=== PATIENT | female | born 1945 | race Caucasian/White ===

== ENCOUNTER 2018-10-05 16:16 | Inpatient (IN) | payer MEDICARE, OTHER ==
[~2018-10-05] VITALS: Ht 160 cm; Wt 84.7 kg
[2018-10-05] MEDS ORDERED: ipratropium/albuterol 3ml nebule NEB ONE (16:25)
[2018-10-05] MEDS ORDERED: LORazepam 2 mg/ml vial IV ONE (16:25)
[2018-10-05] MEDS ORDERED: ondansetron/PF 4mg/2ml inj IV ONE (16:35)
[2018-10-05] MEDS ORDERED: morphine 4 MG/ML inj SYRINge IV PRN (16:35)
--- NOTE | 2018-10-05 16:41 | NUR ---
PT STATES SHE SEES DRA SALCEDO, CALLED [phone], MACHINE ZIPPER TRIMMER WILL FAX MEDICATION LIST AND LIST OF PT ALLERGIES.
[2018-10-05 16:59] LABS: BASOPHILS % (AUTO) 0.5 % (0-1); EOSINOPHILS # (AUTO) 0.3 X10'3 (0-0.9); EOSINOPHILS % (AUTO) 4.2 % (0-6); HEMATOCRIT 45.5 % (35.0-45.0); HEMOGLOBIN 14.9 g/dl (12.0-16.0); LYMPHOCYTES # (AUTO) 2.1 X10'3 (1.1-4.8); LYMPHOCYTES % (AUTO) 28.9 % (21-51); MEAN CORPUSCULAR HEMOGLOBIN 29.3 PG (27.0-31.0); MEAN CORPUSCULAR HGB CONC 32.8 % (33.0-36.5); MEAN CORPUSCULAR VOLUME 89.3 FL (78-98); MEAN PLATELET VOLUME 11.3 FL (7.4-10.4); MONOCYTES # (AUTO) 0.9 X10'3 (0-0.9); MONOCYTES % (AUTO) 12.2 % (2-12); NEUTROPHILS % (AUTO) 54.2 % (42-75); PLATELET COUNT 151 X10'3 (140-440); RED BLOOD COUNT 5.09 X10'6 (4.20-5.60); RED CELL DISTRIBUTION WIDTH 13.1 % (11.5-14.5); WHITE BLOOD COUNT 7.3 X10'3 (4.5-11.0)
[2018-10-05 17:21] LABS: INR 1.1 INR; PROTHROMBIN TIME 11.2 SECONDS (9.0-12.0)
[2018-10-05 17:23] LABS: ALANINE AMINOTRANSFERASE 46 U/L (12-78); ALBUMIN 3.7 G/DL (3.4-5.0); ALBUMIN/GLOBULIN RATIO 0.9 (1.1-1.5); ALKALINE PHOSPHATASE 76 IU/L (46-116); ANION GAP 16 (8-16); ASPARTATE AMINO TRANSFERASE 55 U/L (10-37); BILIRUBIN,TOTAL 0.9 MG/DL (0.1-1.0); BLOOD UREA NITROGEN 10 MG/DL (7-18); BUN/CREATININE RATIO 12.5 (6.6-38.0); CALCIUM 9.3 MG/DL (8.5-10.1); CHLORIDE 101 MMOL/L (99-107); ETHANOL < 0.010 GM/DL (0.0-0.010); GLUCOSE 118 MG/DL (70-104); SODIUM 143 MMOL/L (135-145); TOTAL CARBON DIOXIDE 26.4 MMOL/L (24-32); eGFR 68 ML/MIN
[2018-10-05 17:25] LABS: POTASSIUM 1.8 MMOL/L (3.5-5.1)
[2018-10-05] MEDS ORDERED: potassium Cl oral solution 20 MEQ/15 ML PO ONE (17:25)
[2018-10-05] MEDS ORDERED: potassium Cl 20 mEq/100mL bag IV ONE (17:25)
[2018-10-05] MEDS ORDERED: nitroGLYCERIN 0.4mg SUBLingual tab SL PRN (17:30)
[2018-10-05] MEDS ORDERED: enoxaparin 100mg/ml syringe SUBCUT ONE (17:30)
[2018-10-05] MEDS ORDERED: potassium 10mEq/100ml NS w/LIDOcaine (10mg/bag) IV SCH (17:35)
[2018-10-05] MEDS: potassium 10mEq/100ml NS w/LIDOcaine (10mg/bag) IV SCH ×2 (17:40→19:27)
[2018-10-05 17:51] LABS: MAGNESIUM 1.9 MG/DL (1.5-2.4)
[2018-10-05] MEDS ORDERED: magnesium hydroxide 30ml (MOM) UD suspension PO PRN (17:55)
[2018-10-05] MEDS ORDERED: ondansetron/PF 4mg/2ml inj IV PRN (17:55)
[2018-10-05] MEDS ORDERED: acetaminophen 325mg tablet PO PRN (17:55)
[2018-10-05] MEDS ORDERED: FURO-150 PO (17:55)
[2018-10-05] MEDS ORDERED: potassium Cl 20 mEq SR tablet PO PRN (17:55)
[2018-10-05] MEDS ORDERED: TRAZ-218 PO (17:55)
[2018-10-05] MEDS ORDERED: magnesium 4gm in 100ml NS 100 ML IV PRN (17:55)
[2018-10-05] MEDS ORDERED: potassium Cl 40MEQ/NS 500ml 500 ML IV PRN ×2 (17:55)
[2018-10-05] MEDS ORDERED: magnesium Cl slow-release 64mg tablet PO PRN (17:55)
[2018-10-05] MEDS ORDERED: NIFE30TA88 PO (17:55)
[2018-10-05] MEDS ORDERED: mag hydrox/Alum hydrox/simeth 30ml oral suspension PO PRN (17:55)
[2018-10-05] MEDS ORDERED: BISO1TAB4 PO (17:56)
--- NOTE | 2018-10-05 17:59 | NUR ---
RT AT BEDSIDE FOR BREATHING TREATMENT PER ORDERS NOW.
--- NOTE | 2018-10-05 18:16 | NUR ---
PT FAMILY MEMBER RANJITH CALLED HER PHONE# [phone]
[2018-10-05 18:45] VITALS: BP 149/60
[2018-10-05] MEDS: enoxaparin 80mg/0.8ml syringe SUBCUT SCH (19:06)
[2018-10-05] MEDS ORDERED: enoxaparin 100mg/ml syringe SUBCUT SCH (20:00)
[2018-10-05 20:22] LABS: POTASSIUM 2.5 MMOL/L (3.5-5.1)
[2018-10-05] MEDS: potassium Cl 20mEq in NS 1,000 ML IV SCH (21:39)
[2018-10-05] MEDS: traZODone 50mg tablet PO SCH (21:42)
[2018-10-05 22:00] VITALS: BP 126/64
[2018-10-05 23:10] LABS: POTASSIUM 2.8 MMOL/L (3.5-5.1)
[2018-10-06] VITALS (20 sets, daily range): BP systolic 97–140; BP diastolic 39–70
[2018-10-06] MEDS: potassium Cl 20 mEq SR tablet PO PRN ×3 (01:08→10:59)
[2018-10-06] MEDS: potassium Cl 20mEq in NS 1,000 ML IV SCH ×3 (03:55→20:20)
[2018-10-06 05:02] LABS: BASOPHILS % (AUTO) 0.5 % (0-1); EOSINOPHILS # (AUTO) 0.2 X10'3 (0-0.9); EOSINOPHILS % (AUTO) 4.4 % (0-6); HEMATOCRIT 36.5 % (35.0-45.0); HEMOGLOBIN 12.3 g/dl (12.0-16.0); LYMPHOCYTES # (AUTO) 1.1 X10'3 (1.1-4.8); MEAN CORPUSCULAR HEMOGLOBIN 30.3 PG (27.0-31.0); MEAN CORPUSCULAR HGB CONC 33.7 % (33.0-36.5); MEAN CORPUSCULAR VOLUME 89.9 FL (78-98); MEAN PLATELET VOLUME 11.3 FL (7.4-10.4); MONOCYTES # (AUTO) 0.5 X10'3 (0-0.9); MONOCYTES % (AUTO) 10.8 % (2-12); NEUTROPHILS % (AUTO) 61.3 % (42-75); PLATELET COUNT 110 X10'3 (140-440); RED BLOOD COUNT 4.06 X10'6 (4.20-5.60); RED CELL DISTRIBUTION WIDTH 13.4 % (11.5-14.5); WHITE BLOOD COUNT 4.8 X10'3 (4.5-11.0)
[2018-10-06 05:56] LABS: ALBUMIN 2.8 G/DL (3.4-5.0); ANION GAP 9 (8-16); BLOOD UREA NITROGEN 9 MG/DL (7-18); BUN/CREATININE RATIO 12.9 (6.6-38.0); CALCIUM 8.3 MG/DL (8.5-10.1); CHLORIDE 106 MMOL/L (99-107); GLUCOSE 111 MG/DL (70-104); POTASSIUM 3.2 MMOL/L (3.5-5.1); SODIUM 143 MMOL/L (135-145); TOTAL CARBON DIOXIDE 28.5 MMOL/L (24-32); eGFR 82 ML/MIN
--- NOTE | 2018-10-06 06:00 | NUR ---
Patient in room MED 316. I have received report from FLORENCE Cortez and had the opportunity to ask questions and assume patient care.
--- NOTE | 2018-10-06 06:00 | NUR ---
Patient in room MED 316. I have received report from FLORENCE Cortez and had the opportunity to ask questions and assume patient care.
--- NOTE | 2018-10-06 06:17 | NUR ---
Problems reprioritized. Patient report given, questions answered & plan of care reviewed with Yvan HENRIQUEZ.
--- NOTE | 2018-10-06 06:30 | NUR ---
Patient in room MED 316. I have received report from FLORENCE Zapata and had the opportunity to ask questions and assume patient care.
[2018-10-06 06:48] LABS: CLARITY,URINE CLEAR (Clear); COLOR,URINE YELLOW (Yellow); GLUCOSE, URINE NEGATIVE (Neg); KETONES,URINE NEGATIVE (Neg); LEUKOCYTE ESTERASE ,URINE NEGATIVE (Neg); NITRITES, URINE NEGATIVE (Neg); OCCULT BLOOD,URINE NEGATIVE (Neg); PH,URINE 6.5 (4.8-8.0); PROTEIN,URINE NEGATIVE (Neg); UA COLLECTION TYPE NON-SPECIFIED
[2018-10-06 06:57] LABS: URINE AMPHETAMINE SCREEN NEGATIVE (Neg); URINE BARBITUATE SCREEN NEGATIVE (Neg); URINE BENZODIAZEPINES SCREEN NEGATIVE (Neg); URINE CANNABINOID SCREEN NEGATIVE (Neg); URINE COCAINE SCREEN NEGATIVE (Neg); URINE METHADONE SCREEN NEGATIVE (Neg); URINE OPIATE SCREEN POSITIVE (Neg); URINE PHENCYCLIDINE SCREEN NEGATIVE (Neg)
[2018-10-06] MEDS: aspirin 81mg tablet.DR PO SCH (07:58)
[2018-10-06] MEDS: atorvastatin 20mg tablet PO SCH (07:59)
[2018-10-06] MEDS: atenolol 50mg tablet PO SCH (08:00)
[2018-10-06] MEDS ORDERED: HCTZ PO SCH (08:00)
[2018-10-06] MEDS ORDERED: BISOPROLOL FUMARATE PO SCH (08:00)
[2018-10-06] MEDS ORDERED: HYDROchlorothiazide 25mg tablet PO SCH ×2 (08:00)
[2018-10-06] MEDS: NIFEdipine XL 30mg tablet PO SCH (08:01)
[2018-10-06] MEDS: enoxaparin 80mg/0.8ml syringe SUBCUT SCH ×2 (08:02→20:08)
[2018-10-06 08:51] LABS: CHOL/HDL RATIO 3.9 (0.00-4.99); CHOLESTEROL 154 MG/DL (0-200); HDL CHOLESTEROL 39 MG/DL (35-60); LDL CHOLESTEROL 111 MG/DL (50-100); TRIGLYCERIDES 84 MG/DL (20-135)
[2018-10-06] MEDS ORDERED: BUSP10TA11 PO (09:12)
[2018-10-06] MEDS ORDERED: MELO-100 PO (09:12)
--- NOTE | 2018-10-06 11:26 | NUR ---
Patient reports that approximately 4 weeks ago she received dental work to remove her a molar which caused her to have to take Ibuprofen. She reports that she had to take the Ibuprofen for 2 weeks. During this time period she states that she was not able to take her Potassium for that 2 week period because the "pills are too large" for her to swallow and she only could tolerate taking the Ibuprofen for the pain. She reports that she is supposed to take Potassium 20 mEq daily with her other medications. She reports that she just remembered this and forgot that she also takes the Potassium.
[2018-10-06] MEDS ORDERED: POTA20TA19 PO (11:36)
[2018-10-06] MEDS ORDERED: metoprolol tartrate 1mg/ml inj IV PRN (11:50)
[2018-10-06] MEDS ORDERED: regadenoson 0.4mg/5ml syringe IV PRN (11:50)
[2018-10-06] MEDS ORDERED: aminophylline 250mg/10ml inj. IV PRN (11:50)
[2018-10-06] MEDS ORDERED: nitroGLYCERIN 0.4mg SUBLingual tab SL PRN (11:50)
--- NOTE | 2018-10-06 14:45 | NUR ---
Patient left the floor with nuclear equipment design engineer. Patient left in stable condition by wheelchair.
[2018-10-06] MEDS ORDERED: regadenoson 0.4mg/5ml syringe IV ONE (15:08)
[2018-10-06] MEDS ORDERED: aminophylline inj. 10 ML IV ONE (15:08)
--- NOTE | 2018-10-06 17:40 | NUR ---
Orienteer documentation: I have reviewed and agree with all interventions, assessments performed and documented by Jodi HENRIQUEZ.
--- NOTE | 2018-10-06 18:20 | NUR ---
Patient in room MED 316. I have received report from FLORENCE Zapata and had the opportunity to ask questions and assume patient care.
[2018-10-06] MEDS: traZODone 50mg tablet PO SCH (20:07)
[2018-10-07 03:00] VITALS: BP 111/58
[2018-10-07 05:57] LABS: BASOPHILS % (AUTO) 0.7 % (0-1); EOSINOPHILS # (AUTO) 0.3 X10'3 (0-0.9); EOSINOPHILS % (AUTO) 8.4 % (0-6); HEMOGLOBIN 11.9 g/dl (12.0-16.0); LYMPHOCYTES # (AUTO) 1.1 X10'3 (1.1-4.8); LYMPHOCYTES % (AUTO) 35.1 % (21-51); MEAN CORPUSCULAR HEMOGLOBIN 30.7 PG (27.0-31.0); MEAN CORPUSCULAR HGB CONC 34.2 % (33.0-36.5); MEAN CORPUSCULAR VOLUME 89.7 FL (78-98); MEAN PLATELET VOLUME 11.4 FL (7.4-10.4); MONOCYTES # (AUTO) 0.4 X10'3 (0-0.9); MONOCYTES % (AUTO) 12.6 % (2-12); NEUTROPHILS # (AUTO) 1.4 X10'3 (1.8-7.7); NEUTROPHILS % (AUTO) 43.2 % (42-75); PLATELET COUNT 100 X10'3 (140-440); RED CELL DISTRIBUTION WIDTH 14.7 % (11.5-14.5); WHITE BLOOD COUNT 3.2 X10'3 (4.5-11.0)
[2018-10-07 06:00] VITALS: BP 105/54
[2018-10-07 06:04] LABS: ALBUMIN 2.6 G/DL (3.4-5.0); ANION GAP 5 (8-16); BLOOD UREA NITROGEN 9 MG/DL (7-18); BUN/CREATININE RATIO 12.9 (6.6-38.0); CALCIUM 8.2 MG/DL (8.5-10.1); CHLORIDE 113 MMOL/L (99-107); GLUCOSE 94 MG/DL (70-104); MAGNESIUM 1.9 MG/DL (1.5-2.4); POTASSIUM 4.1 MMOL/L (3.5-5.1); SODIUM 144 MMOL/L (135-145); TOTAL CARBON DIOXIDE 25.7 MMOL/L (24-32); eGFR 82 ML/MIN
--- NOTE | 2018-10-07 06:27 | NUR ---
Problems reprioritized. Patient report given, questions answered & plan of care reviewed with FLORENCE Yusuf.
--- NOTE | 2018-10-07 06:30 | NUR ---
Patient in room MED 316. I have received report from Feliciano HENRIQUEZ and had the opportunity to ask questions and assume patient care.
[2018-10-07] MEDS: atorvastatin 20mg tablet PO SCH (09:09)
[2018-10-07] MEDS: NIFEdipine XL 30mg tablet PO SCH (09:09)
[2018-10-07] MEDS: aspirin 81mg tablet.DR PO SCH (09:09)
[2018-10-07] MEDS: atenolol 50mg tablet PO SCH (09:10)
[2018-10-07] MEDS: potassium Cl 20mEq in NS 1,000 ML IV SCH (09:11)
[2018-10-07] MEDS ORDERED: iohexol 350MG/ML 100ml bottle IV ONE (09:41)
[2018-10-07 11:00] VITALS: BP 147/70
[2018-10-07] MEDS ORDERED: BISO5TAB PO (12:52)
[2018-10-07] MEDS ORDERED: ASPI-1071 PO (12:52)
[2018-10-07] MEDS ORDERED: ATOR20TA66 PO (12:52)
[2018-10-07] MEDS ORDERED: LISI-604 PO (12:53)
--- NOTE | 2018-10-07 14:30 | NUR ---
Patient was discharged in stable condition by dr Christina. All discharge paperwork and instructions were reviewed with the patient and her family, they had no further questions at this time. Her IV was removed with the catheter tip intact, there was minimal bleeding, and clean gauze and tape were applied. Her tele monitor was removed and returned to the tele solder technician. Her new prescriptions were delivered via [facility]. All belongings left with the patient. She was escorted out of the hospital via wheelchair where she got into her daughters private vehicle.
== END 2018-10-07 15:03 | disposition home or self-care (01) | DRG 640 ==
LOC: ER 16:20 → EDBD 17:55 → ED HOLD 17:55 → MED 3N 18:45
PROVIDERS: ADMIT Family Medicine; ATTEND Family Medicine
PROC: 4A02XM4 Measurement of Cardiac Total Activity, External Approach (ICD-10-PCS; principal; 2018-10-06)
PROC: 3E033HZ Introduction of Radioactive Substance into Peripheral Vein, Percutaneous Approach (ICD-10-PCS; 2018-10-06)
DX: E87.6 Hypokalemia (principal); I21.4 Non-ST elevation (NSTEMI) myocardial infarction; I10 Essential (primary) hypertension; M19.90 Unspecified osteoarthritis, unspecified site; F41.9 Anxiety disorder, unspecified; I25.10 Atherosclerotic heart disease of native coronary artery without angina pectoris; I65.29 Occlusion and stenosis of unspecified carotid artery; L40.9 Psoriasis, unspecified; Z85.3 Personal history of malignant neoplasm of breast; Z85.038 Personal history of other malignant neoplasm of large intestine; Z90.49 Acquired absence of other specified parts of digestive tract; Z82.49 Family history of ischemic heart disease and other diseases of the circulatory system; Z88.1 Allergy status to other antibiotic agents; I25.2 Old myocardial infarction
CPT/HCPCS: 36415; 71045; 71275; 74176; 78452; 80048; 80053; 80061; 80305; 80320; 81003; 83735; 83880; 84132; 84484; 85025; 85610; 87070; 93005; 93017; 93306; 94640; 94760; 96372; 96374; 96375; 99285; A9500; G0378; J0280; J1650; J2060; J2270; J2405; J3480; Q9967